=== PATIENT | male | born 1960 | race Caucasian/White ===

== ENCOUNTER 2017-02-20 16:21 | Emergency (ER) | payer BC ==
[2017-02-20 16:31] VITALS: BP 152/87
== END 2017-02-20 19:56 | disposition left against medical advice (07) ==
LOC: ED 16:21
DX: Z53.21 Procedure and treatment not carried out due to patient leaving prior to being seen by health care provider (principal)
CPT/HCPCS: J3490

== ENCOUNTER 2017-02-22 11:57 | Emergency (ER) | payer BC ==
[~2017-02-22] VITALS: Ht 177.8 cm; Wt 86.2 kg
[2017-02-22 12:34] LABS: BASOPHIL % 0.3 % (0-2); PLATELET COUNT 277 x10^3mcL (130-400); RED CELL DISTRIBUTION WIDTH 14.4 % (11.5-14.5)
[2017-02-22 12:44] LABS: CALCIUM 8.9 mg/dL (8.5-10.1); CARBON DIOXIDE 24.8 mmol/L (21-32); CHLORIDE SERUM 103 mmol/L (98-107); CREATININE SERUM 1.2 mg/dL (0.7-1.3); GFR1 > 60 mL/min; GLUCOSE SERUM 101 mg/dL (74-106); POTASSIUM SERUM 3.4 mmol/L (3.5-5.1); SODIUM SERUM 139 mmol/L (136-145)
[2017-02-22 12:49] LABS: ALBUMIN 3.8 g/dL (3.4-5.0); ALKALINE PHOSPHATASE 60 U/L (46-116); ALT/SGPT 32 U/L (16-63); AST/SGOT 19 U/L (15-37); BILIRUBIN TOTAL 0.83 mg/dL (0.20-1.00); TOTAL PROTEIN, SERUM 7.4 g/dL (6.4-8.2)
[2017-02-22 14:18] LABS: AMPHETAMINE QUAL UR NONE DETECTED (NEG <=1000)
[2017-02-22 14:33] VITALS: BP 147/88
== END 2017-02-22 14:33 | disposition home or self-care (01) ==
LOC: ED 11:57
PROVIDERS: Emergency Medicine
DX: F41.1 Generalized anxiety disorder (principal); R51 Headache; R03.0 Elevated blood-pressure reading, without diagnosis of hypertension; F32.9 Major depressive disorder, single episode, unspecified
CPT/HCPCS: 36415; J2060; Q0092